=== PATIENT | male | born 1980 | race Two or more races ===

== ENCOUNTER 2020-03-27 05:03 | Emergency (ER) | payer SELFPAY ==
[~2020-03-27] VITALS: Ht 185.4 cm; Wt 79.4 kg
--- NOTE | 2020-03-27 05:22 | NUR ---
PT CAME INTO THE ER FOR "I HAVE SOMETHING IN MY CRANIUM". PT DENIES AUDITORY OR VISUAL HALLUCINATIONS. PT DENIES SI/HI. PT INCOHERENT, ACTING BIZARRE AND CONSTANTLY YELLING. PT AAOX2, VSS, RESPIRATIONS EVEN AND UNLABORED ON RA W/ NAD NOTED. PT CHANGED INTO GOWN, BELONGINGS PLACED TO LOCKER. SAFETY PRECAUTIONS IMPLEMENTED. SITTER AT BEDSIDE,
[2020-03-27] MEDS ORDERED: HALOPERIDOL LACTATE INJ 5 MG/ML VIAL IM ONE (05:30)
[2020-03-27] MEDS ORDERED: LORAZEPAM 1 MG TABLET PO ONE (05:30)
[2020-03-27 06:06] LABS: BASOPHILS # (AUTO) 0.1 /CMM (0.0-0.2); BASOPHILS % (AUTO) 0.8 % (0.0-2.0); EOSINOPHILS % (AUTO) 2.8 % (0.0-6.0); HEMATOCRIT 41 % (39-51); HEMOGLOBIN 13.3 g/dL (13.5-17.5); LYMPHOCYTES # (AUTO) 2.3 /CMM (0.8-4.8); LYMPHOCYTES % (AUTO) 30.3 % (20.0-44.0); MEAN CORPUSCULAR HGB CONC 32 g/dl (31.0-36.0); MEAN CORPUSCULAR VOLUME 90 fL (80-96); MONOCYTES # (AUTO) 0.7 /CMM (0.1-1.30); MONOCYTES % (AUTO) 9.8 % (2.0-12.0); NEUTROPHILS # (AUTO) 4.3 /CMM (1.8-8.9); NEUTROPHILS % (AUTO) 56.3 % (43.0-81.0); PLATELET COUNT (AUTO) 250 /CMM (150-450); RED BLOOD CELL COUNT(AUTO) 4.59 MIL/uL (4.5-6.0); WHITE BLOOD COUNT (AUTO) 7.6 K/uL (4.3-11.0)
[2020-03-27 06:15] LABS: CALCIUM, SERUM 8.8 mg/dL (8.5-10.1); CARBON DIOXIDE 30 mmol/L (21-32); CHLORIDE 103 mmol/L (98-107); CREATININE 0.8 mg/dL (0.6-1.3); GLUCOSE 85 mg/dL (74-106); POTASSIUM 3.9 mmol/L (3.5-5.1); SODIUM SERUM 139 mmol/L (136-145); UREA NITROGEN, BLOOD 23 mg/dL (7-18)
[2020-03-27 06:21] LABS: ALANINE AMINOTRANSFERASE 28 U/L (12-78); ALBUMIN 3.7 g/dL (3.4-5.0); ALCOHOL, BLOOD < 3 mg/dL (0-0); ALKALINE PHOSPHATASE 80 U/L (46-116); ASPARTATE AMINOTRANSFERASE 25 U/L (15-37); BILIRUBIN,DIRECT 0.2 mg/dL (0.0-0.2); BILIRUBIN,TOTAL 0.5 mg/dL (0.2-1.0); TOTAL PROTEIN, SERUM 7.1 g/dL (6.4-8.2)
[2020-03-27 06:24] LABS: ACETAMINOPHEN < 2 ug/ml (10-30)
--- NOTE | 2020-03-27 07:01 | NUR ---
URINE COLLECTED AND SENT TO LAB
[2020-03-27 09:17] LABS: APPEARANCE,URINE CLEAR (CLEAR); BILIRUBIN,URINE SMALL (NEGATIVE); BLOOD, URINE NEGATIVE Ery/uL (NEGATIVE); COLOR,URINE YELLOW (YELLOW); KETONES,URINE NEGATIVE (NEGATIVE); LEUKOCYTE ESTERASE ,URINE NEGATIVE (NEGATIVE); NITRITE, URINE NEGATIVE (NEGATIVE); PROTEIN,URINE NEGATIVE (NEGATIVE); UGLUCOSE NEGATIVE (NEGATIVE)
[2020-03-27 09:28] LABS: BACTERIA,URINE Rare /HPF (None Seen); RBC,URINE 0-1 /HPF (0-2); SQUAMOUS EPITHELIAL CELL,UR Few /HPF (None Seen); WBC,URINE 0-1 /HPF (0-3)
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
--- NOTE | 2020-03-27 14:32 | NUR ---
PT RE EVALUATED BY AMBER GUAJARDO. HOMELESS WAIVER SIGNED. DENIES SI/HI MEICALLY AND PSYCH CLEARED. Patient discharged to home in stable condition. Written and verbal after care instructions given. Patient verbalizes understanding of instruction.
[2020-03-27 14:33] VITALS: BP 115/62
== END 2020-03-27 14:34 | disposition home or self-care (01) ==
LOC: EDBD → ER 05:05
DX: F22 Delusional disorders (principal); R45.1 Restlessness and agitation; Z98.890 Other specified postprocedural states; Z59.0 Homelessness
CPT/HCPCS: 36415; 80048; 80076; 80305; 80307; 80329; 81001; 85025; 96372; 99285; G0480; J1630; 81000-TC

== ENCOUNTER 2020-03-27 20:15 | Emergency (ER) | payer OTHER ==
[~2020-03-27] VITALS: Ht 185.4 cm; Wt 79.4 kg
[2020-03-27 20:39] LABS: BASOPHILS % (AUTO) 0.9 % (0.0-2.0); EOSINOPHILS % (AUTO) 4.2 % (0.0-6.0); HEMATOCRIT 41 % (39-51); HEMOGLOBIN 13.4 g/dL (13.5-17.5); LYMPHOCYTES # (AUTO) 1.9 /CMM (0.8-4.8); LYMPHOCYTES % (AUTO) 45.5 % (20.0-44.0); MEAN CORPUSCULAR HGB CONC 33 g/dl (31.0-36.0); MEAN CORPUSCULAR VOLUME 90 fL (80-96); MONOCYTES # (AUTO) 0.5 /CMM (0.1-1.30); MONOCYTES % (AUTO) 11.1 % (2.0-12.0); NEUTROPHILS # (AUTO) 1.6 /CMM (1.8-8.9); NEUTROPHILS % (AUTO) 38.3 % (43.0-81.0); PLATELET COUNT (AUTO) 223 /CMM (150-450); WHITE BLOOD COUNT (AUTO) 4.3 K/uL (4.3-11.0)
[2020-03-27 20:51] LABS: CALCIUM, SERUM 8.5 mg/dL (8.5-10.1); CARBON DIOXIDE 28 mmol/L (21-32); CHLORIDE 104 mmol/L (98-107); CREATININE 0.8 mg/dL (0.6-1.3); GLUCOSE 88 mg/dL (74-106); POTASSIUM 3.8 mmol/L (3.5-5.1); SODIUM SERUM 138 mmol/L (136-145); UREA NITROGEN, BLOOD 20 mg/dL (7-18)
--- NOTE | 2020-03-27 21:00 | NUR ---
BIBS FOR C.O SI PLANNING TO OVERDOSE ON PILLS. PT WAS SEEN AT [facility] ER LESS THAN 12 HOURS AGO FOR BIZZARE BEHAVIOR; PT CURRENTLY ALERT AND RESPONSIVE BUT STILL NOT ACTING COMPLETELY NORMAL . PT WAS ASSITED TO BED 15. GOWNED UP AND ALL BELONGINGS TAKEN AWAY FOR SAFETY . SI PRECAUTION IMPLEMENTED AND PT REMAINED UNDER CLOSE SUPERVISION OF A SITTER. PT UNABLE TO PROVIDE URINE SAMPLE AT THS TIME. IN FACT HE FILLED UP THE SPECIMEN CUP WITH WATER WHEN HE WAS ASKED TO PROVIDE URINE SAMPLE!. VSS. WILL CONT TO MONITOR ,
[2020-03-27 21:01] LABS: ALANINE AMINOTRANSFERASE 23 U/L (12-78); ALBUMIN 3.3 g/dL (3.4-5.0); ALCOHOL, BLOOD < 3 mg/dL (0-0); ALKALINE PHOSPHATASE 82 U/L (46-116); ASPARTATE AMINOTRANSFERASE 26 U/L (15-37); BILIRUBIN,DIRECT 0.2 mg/dL (0.0-0.2); BILIRUBIN,TOTAL 0.5 mg/dL (0.2-1.0); TOTAL PROTEIN, SERUM 6.6 g/dL (6.4-8.2)
[2020-03-27 21:03] LABS: ACETAMINOPHEN < 2 ug/ml (10-30); SALICYLATE 0.6 mg/dL (2.8-20.0)
--- NOTE | 2020-03-27 22:33 | NUR ---
PT RESTING IN BED QUIETLY, NO ACUTE DISTRESS NOTED, RESP EVEN AND UNLABORED. CALL LIGHT WITHIN REACH. WILL CONTINUE TO MONITOR PT CLOSELY.
[2020-03-27 23:35] LABS: APPEARANCE,URINE SL CLOUDY (CLEAR); BILIRUBIN,URINE NEGATIVE (NEGATIVE); BLOOD, URINE NEGATIVE Ery/uL (NEGATIVE); COLOR,URINE YELLOW (YELLOW); KETONES,URINE NEGATIVE (NEGATIVE); LEUKOCYTE ESTERASE ,URINE NEGATIVE (NEGATIVE); NITRITE, URINE NEGATIVE (NEGATIVE); PROTEIN,URINE NEGATIVE (NEGATIVE); UGLUCOSE NEGATIVE (NEGATIVE)
[2020-03-28 00:01] LABS: BACTERIA,URINE None seen /HPF (None Seen); RBC,URINE 0-2 /HPF (0-2); SQUAMOUS EPITHELIAL CELL,UR Few /HPF (None Seen); URINE AMORPHOUS PHOSPHATES Many /HPF (None Seen); WBC,URINE 0-2 /HPF (0-3)
--- NOTE | 2020-03-28 00:04 | NUR ---
PT AWAKE, AMBULATED TO THE RESTROOM, NO ACUTE DISTRESS NOTED, RESP EVEN AND UNLABORED. PT DENIES PAIN OR DISCOMFORT AT THIS TIME. 1:1 SITTER AT BEDSIDE.
--- NOTE | 2020-03-28 02:43 | NUR ---
PT ASLEEP, NO ACUTE DISTRESS NOTED, RESP EVEN AND UNLABORED. CALL LIGHT WITHIN REACH. 1:1 SITTER REMAINS AT BEDSIDE FOR PT SAFETY.
--- NOTE | 2020-03-28 04:33 | NUR ---
CALLED VINICIUS RICHEY FOR EVALUATION
--- NOTE | 2020-03-28 07:30 | NUR ---
PT RESTING COMFORTABLY IN BED. VITAL SIGNS STABLE. SITTER AT BEDSIDE
--- NOTE | 2020-03-28 09:20 | NUR ---
CALLED PSYCH CLINICIAN BRIANDA, LEFT A MESSAGE.
--- NOTE | 2020-03-28 09:42 | NUR ---
BREAKFAST TRAY PROVIDED, TOLERATING PO WELL.
--- NOTE | 2020-03-28 11:39 | NUR ---
PATIENT IN BED, ASLEEP, EASILY AROUSABLE BY VOICE. HOOKED TO MONITOR, VSS. SITTER AT BEDSIDE FOR SAFETY. WILL CONTINUE TO MONITOR ACCORDINGLY
--- NOTE | 2020-03-28 15:38 | NUR ---
Multiple Tube Winding Machine Operator met with the patient and Graciela will evaluate the patient for next steps. Multiple Tube Winding Machine Operator to remain available for additional needs.
--- NOTE | 2020-03-28 15:56 | NUR ---
PATIENT IN BED,AWAKE. HOOKED TO MONITOR, VSS. SITTER AT BEDSIDE FOR SAFETY. WILL CONTINUE TO MONITOR ACCORDINGLY
--- NOTE | 2020-03-28 17:32 | NUR ---
PATIENT IN BED, ASLEEP, EASILY AROUSABLE BY VOICE. HOOKED TO MONITOR, VSS. SITTER AT BEDSIDE FOR SAFETY. WILL CONTINUE TO MONITOR ACCORDINGLY
--- NOTE | 2020-03-28 17:35 | NUR ---
Business Development Associate contacted Praneeth at [facility] and there is a hospital who takes this patients insurance in [place]. Business Development Associate sent all information over at and will follow up with ED, Business Development Associate spoke to Fred about this patient and bed.
--- NOTE | 2020-03-28 18:47 | NUR ---
PATIENT IN BED, ASLEEP, EASILY AROUSABLE BY VOICE. HOOKED TO MONITOR, VSS. SITTER AT BEDSIDE FOR SAFETY. WILL CONTINUE TO MONITOR ACCORDINGLY
--- NOTE | 2020-03-28 18:53 | NUR ---
PATIENT ACCEPTED AT [facility] NUMBER FOR REPORT: [phone] (CHARGE NURSE REPORT) ADMITTING: DR ESCOBEDO
--- NOTE | 2020-03-28 19:02 | NUR ---
REPORT GIVEN TO SELENA SCHMITZ OF [facility]
--- NOTE | 2020-03-28 19:30 | NUR ---
CALLED [facility] ETA 6 HOURS
--- NOTE | 2020-03-28 19:40 | NUR ---
[facility] ETA [id number]
--- NOTE | 2020-03-28 20:47 | NUR ---
[facility] UPDATED ETA [id number]
--- NOTE | 2020-03-28 22:41 | NUR ---
REPORT GIVEN TO TRANSPORT TEAM FOR [facility]. AND TRANSFERRING RESPONSIBILTIES.
[2020-03-28 22:48] VITALS: BP 134/89
== END 2020-03-28 23:05 | disposition short-term general hospital (02) ==
LOC: EDBD 20:16 → ER 20:16
DX: R45.851 Suicidal ideations (principal); F15.10 Other stimulant abuse, uncomplicated; Z98.890 Other specified postprocedural states; Z59.0 Homelessness
CPT/HCPCS: 36415; 80048; 80076; 80305; 80307; 80329; 81001; 85025; 99285; G0480; 81000-TC